=== PATIENT | female | born 1965 | race Caucasian/White ===

== ENCOUNTER 2017-06-23 08:46 | Day surgery (SDC) | payer BC ==
[~2017-06-23] VITALS: Ht 162.6 cm; Wt 133.7 kg
[2017-06-23] MEDS ORDERED: PRINIVIL20 MG PO (10:33)
[2017-06-23] MEDS ORDERED: NORVASC 5MG5 MG/TAB PO (10:33)
[2017-06-23] MEDS ORDERED: BUSPAR10 MG PO (10:34)
[2017-06-23 10:35] VITALS: BP 165/118; PULSE 68; TEMP 97.4
[2017-06-23 13:35] VITALS: BP 134/83; PULSE 67; TEMP 97.2
[2017-06-23 13:50] VITALS: BP 131/82; PULSE 65
[2017-06-23] MEDS ORDERED: COLACE 100100 MG/CAP PO (13:54)
[2017-06-23] MEDS ORDERED: MOTRIN 600600 MG/TAB PO (13:55)
[2017-06-23] MEDS ORDERED: NORCO 325 MG-51 TAB PO (13:55)
[2017-06-23] MEDS ORDERED: ZOFRAN ODT4 MG PO (13:55)
[2017-06-23 14:05] VITALS: BP 150/83; PULSE 64
[2017-06-23 14:15] VITALS: BP 158/92; PULSE 64
== END 2017-06-23 14:50 | disposition home or self-care (01) ==
LOC: SDCO 08:46
DX: N60.92 Unspecified benign mammary dysplasia of left breast (principal); N60.42 Mammary duct ectasia of left breast; N61.0 Mastitis without abscess; I10 Essential (primary) hypertension; G47.33 Obstructive sleep apnea (adult) (pediatric)
CPT/HCPCS: J0690; J2405; J2704; J3010; J7120